=== PATIENT | female | born 1960 | race Caucasian/White ===

== ENCOUNTER → 2024-10-06 10:50 | Outpatient (REF) | payer BC, SELFPAY | LOC: WDC 10:50 | PROVIDERS: ATTENDING PHYSICIAN Obstetrics & Gynecology Gynecology | DX: Z12.31 Encounter for screening mammogram for malignant neoplasm of breast (principal) | CPT/HCPCS: 77063; 77067 ==

== ENCOUNTER → 2025-07-05 14:56 | Outpatient (REF) | payer MEDICARE, OTHER, SELFPAY | LOC: HWRAD 14:56 | PROVIDERS: ATTENDING PHYSICIAN Nurse Practitioner Family | DX: M54.31 Sciatica, right side (principal); M54.32 Sciatica, left side | CPT/HCPCS: 72110 ==